=== PATIENT | male | born 2000 | race Caucasian/White ===

== ENCOUNTER 2018-02-05 09:24 | Emergency (ER) | payer SELFPAY ==
[~2018-02-05] VITALS: Ht 175.3 cm; Wt 95.3 kg
[2018-02-05 09:26] VITALS: BP 147/108
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
== END 2018-02-05 09:53 | disposition home or self-care (01) ==
LOC: ER 09:24
DX: Z20.6 Contact with and (suspected) exposure to human immunodeficiency virus [HIV] (principal)
CPT/HCPCS: 99281